=== PATIENT | female | born 1980 | race Caucasian/White ===

== ENCOUNTER 2019-02-08 01:55 | Emergency (ER) | payer MEDICAID ==
[~2019-02-08] VITALS: Ht 165.1 cm; Wt 52.2 kg
[2019-02-08 01:55] VITALS: BP 141/92
--- NOTE | 2019-02-08 01:55 | NUR ---
of ED Nurse Note: Pt was BIBA from a front of [employer], c/o right upper arm pain 04/05 after received an unknow medication s/c injuection from other hospital. Pt's skin of right upper arm dry and intact. Pt is a/o x4, vital signs stable at this time, waiting for orders.
[2019-02-08] MEDS ORDERED: IBUPROFEN600 MG ORAL (02:09)
[2019-02-08] MEDS ORDERED: DOXYCYCLINE MO100 MG ORAL (02:09)
--- NOTE | 2019-02-08 02:10 | Emergency Room Report ---
History of Present Illness General Chief Complaint: Pain Source: Patient, Medical Record, EMS Present Illness HPI Is a 38-year-old female with no significant past medical issue. She presents with chief complaint of right arm pain. She was at [facility] earlier yesterday. She went there and was diagnosed with delirium/psychosis. On discharge she said she got a vaccine on her right deltoid area. Now swollen and painful. She said is burning and felt feverish. No nausea no vomiting. Pain is 7 out of 10. Denies any other complaint. Nothing made it better. Movement made it worse. Allergies: Coded Allergies: ACETAMINOPHEN (Verified Allergy, Unknown, 02/08/19) GABAPENTIN (Verified Allergy, Unknown, 02/08/19) Patient History Past Medical History: see triage record, old chart reviewed Past Surgical History: none Pertinent Family History: none Social History: Reports: smoking Now: No Immunizations: other Reviewed Nursing Documentation: PMH: Agreed; PSxH: Agreed Nursing Documentation-PMH History Of Psychiatric Problem: Yes Hx Seizures: Yes - valium, abilify, ativian, hydrocodone, ranitdine Review of Systems Eye: Denies: eye pain, blurred vision ENT: Denies: ear pain, nose congestion, throat swelling Respiratory: Denies: cough, shortness of breath Cardiovascular: Denies: chest pain, palpitations Gastrointestinal: Denies: abdominal pain, diarrhea, nausea, vomiting Musculoskeletal: Reports: muscle pain; Denies: back pain, joint pain Skin: Denies: rash Neurological: Denies: headache, numbness Endocrine: Denies: increased thirst, increased urine Hematologic/Lymphatic: Denies: easy bruising All Other Systems: negative except mentioned in HPI Physical Exam Vital Signs Date Time Temp Pulse Resp B/P (MAP) Pulse Ox O2 Delivery O2 Flow Rate FiO2 02/08/19 01:49 98.8 88 14 146/92 99 Room Air vitals with high blood pressure Sp02 EP Interpretation: reviewed, normal General Appearance: well appearing, no apparent distress, alert Head: normocephalic, atraumatic Eyes: bilateral eye PERRL, bilateral eye EOMI ENT: hearing grossly normal, normal pharynx Neck: full range of motion, supple, no meningismus Respiratory: chest non-tender, lungs clear, normal breath sounds Cardiovascular #1: regular rate, rhythm, no murmur Gastrointestinal: normal bowel sounds, non tender, no mass, no organomegaly, no bruit, non-distended Musculoskeletal: back normal, gait/station normal, normal range of motion, other - Right lateral deltoid: There is some tenderness over the injection site. There is some slight swelling. No redness or warmth. Psychiatric: mood/affect normal Skin: warm/dry Medical Decision Making Diagnostic Impression: Primary Impression: Arm pain, right ER Course Patient presents with right arm pain over the injection site. She most likely got a Pierce of vaccine. There is some swelling underneath the muscle. Most likely she has a hematoma. Patient insisted that she has an infection. We'll cover for possible cellulitis lasts abscess. No evidence of necrotizing fasciitis or deep infection. Last Vital Signs Date Time Temp Pulse Resp B/P (MAP) Pulse Ox O2 Delivery O2 Flow Rate FiO2 02/08/19 01:49 98.8 88 14 146/92 99 Room Air Status: improved Disposition: HOME, SELF-CARE Condition: Stable Scripts Ibuprofen* (MOTRIN*) 600 Mg Tablet 600 MG ORAL THREE TIMES A DAY, #30 TAB 0 Refills Prov: Emigdio Pollack MD 02/08/19 Doxycycline Monohydrate* (DOXYCYCLINE MONOHYDRATE*) 100 Mg Capsule 100 MG ORAL Q12H, #14 CAP 0 Refills Prov: Emigdio Pollack MD 02/08/19 Additional Instructions: Keep area clean. Apply antibody ointment. Follow-up with your doctor in 7 days for recheck. Return if worse. Emigdio Pollack MD Feb 08, 2019 02:10
[2019-02-08 02:21] VITALS: BP 141/92
--- NOTE | 2019-02-08 02:21 | NUR ---
ER DISCHARGE NOTE: Patient is cleared to be discharged per Dr. Pollack. Pain Meds given as ordered. Pt is A/O x4 on room air with stable vital signs. Pt was given D/C instructions and was able to verbalize understanding. Pt's ID band removed. Pt is able to ambulate with steady gait and took all belongings.
== END 2019-02-08 02:21 | disposition home or self-care (01) ==
LOC: EDBD 01:55 → EMR 02:15
DX: M79.601 Pain in right arm (principal); Z88.6 Allergy status to analgesic agent; Z88.8 Allergy status to other drugs, medicaments and biological substances; G40.909 Epilepsy, unspecified, not intractable, without status epilepticus; F17.200 Nicotine dependence, unspecified, uncomplicated
CPT/HCPCS: 99282

== ENCOUNTER 2019-04-07 08:54 | Emergency (ER) | payer MEDICAID ==
[~2019-04-07] VITALS: Ht 160 cm; Wt 49.9 kg
[~2019-04-07 08:54] MED LIST: DOXYCYCLINE MO100 MG ORAL; IBUPROFEN600 MG ORAL
[2019-04-07] MEDS ORDERED: VALIUM2 MG ORAL (09:07)
[2019-04-07] MEDS ORDERED: Ketorolac 30mg Inj IM ONE (09:30)
[2019-04-07] MEDS ORDERED: Tylenol #3 tab (300mg/30mg) ORAL ONE (10:00)
--- NOTE | 2019-04-07 10:20 | Emergency Room Report ---
History of Present Illness General Chief Complaint: Headache Source: Patient Present Illness HPI 38-year-old female presents ED for evaluation. Patient walked in stating that she has "total body pain" and lice in her head. States it is very itchy. States she has arthritis and needs oxycodone denies any recent fall or injury. States pain is throbbing, 10 out of 10, nonradiating. No aggravating relieving factors. Also very anxious. States that she normally takes Abilify and Valium but states she has not had her medication for some time. Denies SI or HI. Denies hearing voices. Denies drug use. No other aggravating relieving factors. Denies any other associated symptoms Allergies: Coded Allergies: GABAPENTIN (Verified Allergy, Unknown, 02/08/19) Patient History Past Medical History: psych hx, other - arthritis Pertinent Family History: none Social History: Denies: smoking, alcohol use, drug use Last Menstrual Period: 3 weeks ago Now: No Immunizations: UTD Reviewed Nursing Documentation: PMH: Agreed; PSxH: Agreed Nursing Documentation-PMH Past Medical History: No Stated History Hx Seizures: Yes - valium, abilify, ativian, hydrocodone, ranitdine Review of Systems All Other Systems: negative except mentioned in HPI Physical Exam Vital Signs Date Time Temp Pulse Resp B/P (MAP) Pulse Ox O2 Delivery O2 Flow Rate FiO2 04/07/19 09:04 98.2 84 16 118/76 (90) 98 Room Air Sp02 EP Interpretation: reviewed, normal General Appearance: alert, GCS 15, non-toxic, other - agitated Head: normocephalic, atraumatic Eyes: bilateral eye normal inspection, bilateral eye PERRL ENT: hearing grossly normal, normal pharynx, no angioedema, normal voice Neck: full range of motion, supple/symm/no masses Respiratory: chest non-tender, lungs clear, normal breath sounds, speaking full sentences Cardiovascular #1: regular rate, rhythm, no edema Cardiovascular #2: 2+ carotid (R), 2+ carotid (L), 2+ radial (R), 2+ radial (L) , 2+ dorsalis pedis (R), 2+ dorsalis pedis (L) Gastrointestinal: normal bowel sounds, non tender, soft, non-distended, no guarding, no rebound Rectal: deferred Genitourinary: normal inspection, no CVA tenderness Musculoskeletal: back normal, gait/station normal, normal range of motion, non- tender Neurologic: alert, oriented x3, responsive, motor strength/tone normal, sensory intact, speech normal Psychiatric: judgement/insight normal, memory normal, mood/affect normal, no suicidal/homicidal ideation Reflexes: 3+ bicep (R), 3+ bicep (L), 3+ tricep (R), 3+ tricep (L), 3+ knee (R) , 3+ knee (L) Skin: normal color, well hydrated Lymphatic: no adenopathy Medical Decision Making Last Vital Signs Date Time Temp Pulse Resp B/P (MAP) Pulse Ox O2 Delivery O2 Flow Rate FiO2 04/07/19 10:00 98.2 04/07/19 09:04 84 16 118/76 (90) 98 Room Air Referrals: NOT CHOSEN IPA/,REFERRING (PCP) Avinash Spain MD Apr 07, 2019 10:20
[2019-04-07 11:18] LABS: BILIRUBIN, URINE NEGATIVE (NEGATIVE); COLOR,URINE PALE YELLOW; GLUCOSE, URINE (UA) NEGATIVE (NEGATIVE); KETONES,URINE NEGATIVE (NEGATIVE); LEUKOCYTE ESTERASE ,URINE NEGATIVE (NEGATIVE); NITRITE,URINE NEGATIVE (NEGATIVE); PH,URINE 7 (4.5-8.0); PROTEIN,URINE NEGATIVE (NEGATIVE); UROBILINOGEN,URINE NORMAL MG/DL (0.0-1.0)
[2019-04-07 11:24] LABS: APPEARANCE,URINE SLIGHTLY CLOUDY
[2019-04-07] MEDS ORDERED: LICE TREATMENT118 ML TOPIC (11:54)
[2019-04-07] MEDS ORDERED: IBUPROFEN600 MG ORAL (11:54)
[2019-04-07] MEDS ORDERED: RANITIDINE HCL150 MG ORAL (11:54)
[2019-04-07] MEDS ORDERED: VALIUM5 MG ORAL (11:54)
[2019-04-07] MEDS ORDERED: ABILIFY15 MG ORAL (11:55)
[2019-04-07 12:07] VITALS: BP 118/76
--- NOTE | 2019-04-08 14:05 | Emergency Room Report ---
Physical Exam Vital Signs Date Time Temp Pulse Resp B/P (MAP) Pulse Ox O2 Delivery O2 Flow Rate FiO2 04/07/19 09:04 98.2 84 16 118/76 (90) 98 Room Air Medical Decision Making Homeless Attestation I, The treating physician Dr. Spain, has assessed and agrees that patient is medically stable for discharge to an outpatient disposition. Diagnostic Impression: Primary Impression: Chronic pain Qualified Codes: G89.29 - Other chronic pain Additional Impressions: Anxiety Lice Opioid dependence Qualified Codes: F11.29 - Opioid dependence with unspecified opioid-induced disorder ER Course Hospital Course 38-year-old female presents the ED complaining of generalized pain. Itchiness in the scalp. Anxiety Differential diagnoses include: Psychosis, EtOH, drug abuse Clinical course patient placed on stretcher. After initial history, exam reveals female that appears very anxious. Complaining of pain everywhere. No bony tenderness. No skin rash. Patient describes itchiness to the scalp. Concern for lice. And is requesting OxyContin. States that she normally sees pain management. States she also gets methadone. I agreed to provide her some Tylenol No. 3 here. Also provided some Valium for anxiety and her Abilify. Patient states that she is experiencing some dysuria. I checked a UA which was unremarkable. On reassessment patient appears to be more calm and cooperative. Patient will be discharged and will provide referrals and prescriptions for her Abilify and short course of Valium homeless checklist completed. Patient is a longer in police custody. Patient is now awake alert oriented x3, ambulating i. I feel this is a highly complex case requiring extensive working including EKG/Rhythm strip, Xray/CT/US, Blood/urine lab work, repeat exams while in ED, and administration of strong opiates/narcotics for pain control, admission to hospital or close patient follow up. Diagnosis - opioid dependence, lice, anxiety, chronic pain Stable and discharged to home. Followup with PMD/psych. Return to ED if symptoms recur or worsen Labs Test 04/07/19 10:56 Urine Color Pale yellow Urine Appearance Slightly cloudy Urine pH 7 (4.5-8.0) Urine Specific [place] 1.015 (1.005-1.035) Urine Protein Negative (NEGATIVE) Urine Glucose (UA) Negative (NEGATIVE) Urine Ketones Negative (NEGATIVE) Urine Blood Negative (NEGATIVE) Urine Nitrite Negative (NEGATIVE) Urine Bilirubin Negative (NEGATIVE) Urine Urobilinogen Normal MG/DL (0.0-1.0) Urine Leukocyte Esterase Negative (NEGATIVE) Urine RBC 0-2 /HPF (0 - 2) Urine WBC 0-2 /HPF (0 - 2) Urine Squamous Epithelial Cells Few /LPF (NONE/OCC) Urine Amorphous Sediment Many /LPF (NONE) Urine Bacteria Few /HPF (NONE) Urine HCG, Qualitative Negative (NEGATIVE) Last Vital Signs Date Time Temp Pulse Resp B/P (MAP) Pulse Ox O2 Delivery O2 Flow Rate FiO2 04/07/19 12:07 98.2 16 118/76 98 Room Air 04/07/19 12:07 88 Status: improved Disposition: HOME, SELF-CARE Condition: Stable Scripts Aripiprazole* (ABILIFY*) 15 Mg Tablet 15 MG ORAL DAILY for 30 Days, TAB 0 Refills Prov: Avinash Spain MD 04/07/19 Piperonyl Butoxide/Pyrethrins (LICE TREATMENT SHAMPOO*) 118 Ml Shampoo 1 APPLIC TOPIC DAILY for 10 Days, #118 ML 0 Refills Prov: Avinash Spain MD 04/07/19 Ranitidine Hcl* (ZANTAC*) 150 Mg Tablet 150 MG ORAL TWICE A DAY, #30 TAB Prov: Avinash Spain MD 04/07/19 Ibuprofen* (MOTRIN*) 600 Mg Tablet 600 MG ORAL Q8H PRN for For Pain, #30 TAB 0 Refills Prov: Avinash Spain MD 04/07/19 Diazepam* (VALIUM*) 5 Mg Tablet 5 MG ORAL TID PRN for ANXIETY for 3 Days, TAB 0 Refills Prov: Avinash Spain MD 04/07/19 Referrals: NOT CHOSEN IPA/,REFERRING (PCP) [facility]. Patient Instructions: Lice, Adult, Chronic Pain, Depression, Adult, Easy-to- Read Avinash Spain MD Apr 08, 2019 14:05
== END 2019-04-07 12:07 | disposition home or self-care (01) ==
LOC: EMR 09:15
DX: G89.29 Other chronic pain (principal); F41.9 Anxiety disorder, unspecified; B85.2 Pediculosis, unspecified; F11.29 Opioid dependence with unspecified opioid-induced disorder
CPT/HCPCS: 81003; 81025; 96372; 99283; J1885